=== PATIENT | female | born 1975 | race American Indian/Alaskan Native ===

== ENCOUNTER 2017-07-02 08:24 | Emergency (ER) | payer OTHER ==
[2017-07-02 08:41] VITALS: BP 160/96
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
== END 2017-07-02 11:43 | disposition left against medical advice (07) ==
LOC: ED 08:24
DX: S00.03XA Contusion of scalp, initial encounter (principal); Y04.8XXA Assault by other bodily force, initial encounter; Y93.89 Activity, other specified; Y92.89 Other specified places as the place of occurrence of the external cause; Y99.8 Other external cause status
CPT/HCPCS: 99283